=== PATIENT | female | born 1985 | race Caucasian/White ===

== ENCOUNTER 2018-05-30 07:08 | Emergency (ER) | payer OTHER ==
[2018-05-30 07:16] VITALS: RESP 19; BMI 33.8
[2018-05-30] MEDS ORDERED: Albuterol-Ipratrop 3 mg / 0.5 (3 ml) UD IH STA (07:29)
--- NOTE | 2018-05-30 07:37 | ED PDOC ---
Arrival/HPI - General Chief Complaint: Flu-like Symptoms Time Seen by Provider: 05/30/18 07:10 Historian: Patient - History of Present Illness Narrative History of Present Illness (Text): 05/30/18 07:29 33 y/o F with past medical history of asthma, presents to the Emergency department for evaluation of difficulty swallowing and flu-like symptoms for the past 10 days. Patient informs symptoms of subjective fever, chills, non-pr oductive cough and rhinorrhea, for which she was started on amoxicillin by her PMD with no improvement to symptoms. Patient additionally informs associated right ear discomfort. Patient worries the symptoms may exacerbate her asthma, prompting her to present to the ED for medical evaluation. Patient denies any other medical complaints. Patient denies any headache, dizziness, chest pain, shortness of breath, dyspnea on exertion, abdominal pain, nausea, vomiting, diarrhea, back pain, neck pain, chocking sensation while swallowing or any other complaints. Patient informs sick contact at home. Time/Duration: > week Symptom Onset: Gradual Symptom Course: Unchanged Activities at Onset: Light Context: Home Past Medical History - Provider Review Nursing Documentation Reviewed: Yes - Infectious Disease Hx of Infectious Diseases: None - Tetanus Immunization Tetanus Immunization: Unknown - Cardiac Hx Cardiac Disorders: No - Pulmonary Hx Respiratory Disorders: Yes Hx Asthma: Yes - Neurological Hx Neurological Disorder: No - HEENT Hx HEENT Disorder: No - Renal Hx Renal Disorder: No - Endocrine/Metabolic Hx Endocrine Disorders: No - Hematological/Oncological Hx Blood Disorders: No - Integumentary Hx Dermatological Disorder: No - Musculoskeletal/Rheumatological Hx Musculoskeletal Disorders: No - Gastrointestinal Hx Gastrointestinal Disorders: Yes Hx Gastroesophageal Reflux: Yes Other/Comment: abd hernia - Genitourinary/Gynecological Hx Genitourinary Disorders: Yes Other/Comment: PCOS - Psychiatric Hx Anxiety: Yes Hx Substance Use: No - Past Surgical History Past Surgical History: No Previous - Anesthesia Hx Anesthesia: No Hx Anesthesia Reactions: No Hx Malignant Hyperthermia: No - Suicidal Assessment Feels Threatened In Home Enviroment: No Family/Social History - Physician Review Nursing Documentation Reviewed: Yes Family/Social History: Unknown Family HX Smoking Status: Never Smoked Hx Alcohol Use: No Hx Substance Use: No Hx Substance Use Treatment: No Allergies/Home Meds Allergies/Adverse Reactions: Allergies house dust mite Allergy (Verified 03/26/18 23:08) SHORTNESS OF BREATH Home Medications: Home Meds Medication Instructions Recorded Confirmed Albuterol HFA [Ventolin HFA 90 2 puff IH PRN PRN 03/26/18 03/26/18 mcg/actuation (8 g)] Loratadine [Claritin] 1 tab PO DAILY 03/26/18 03/26/18 Review of Systems - Physician Review All systems were reviewed & negative as marked: Yes - Review of Systems Constitutional: absent: Fevers ENT: Rhinorrhea, Other (Right ear pain+ difficulty swallowing) Respiratory: Cough. absent: SOB Cardiovascular: absent: Chest Pain, NEW Gastrointestinal: absent: Abdominal Pain, Diarrhea, Nausea, Vomiting Genitourinary Female: absent: Dysuria, Urine Output Changes Musculoskeletal: absent: Back Pain, Neck Pain Skin: absent: Rash Neurological: absent: Headache, Dizziness Physical Exam Vital Signs Reviewed: Yes Vital Signs Temp Pulse Resp BP Pulse Ox 05/30/18 07:16 98.4 F 113 H 19 113/88 97 05/30/18 07:15 98.4 F 113 H 19 113/88 97 Temperature: Afebrile Blood Pressure: Normal Pulse: Tachycardic Respiratory Rate: Normal Appearance: Positive for: Well-Appearing, Non-Toxic, Comfortable Pain Distress: None Mental Status: Positive for: Alert and Oriented X 3 - Systems Exam Head: Present: Atraumatic, Normocephalic Pupils: Present: PERRL Extroacular Muscles: Present: EOMI Conjunctiva: Present: Normal. No: Injected Ears: Present: NORMAL TM (TM intact and opaque bilaterally. No signs of perfusion. ), Other (Mild hyperemia to right ear. Unable to visualize left ear secondary to impacted cerumen noted in left ear. ). No: TM Bulging, TM Perf Mouth: Present: Moist Mucous Membranes Pharnyx: Present: ERYTHEMA (erythema to soft palate noted. ). No: EXUDATE Nose (External): Present: Other (No sinus pressure) Neck: Present: Normal Range of Motion. No: Lymphadenopathy (no cervical lymphadenopathy) Respiratory/Chest: Present: Clear to Auscultation, Good Air Exchange. No: Respiratory Distress, Accessory Muscle Use Cardiovascular: Present: Regular Rate and Rhythm, Normal S1, S2. No: Murmurs Abdomen: No: Tenderness, Distention, Peritoneal Signs Back: Present: Normal Inspection Upper Extremity: Present: Normal Inspection. No: Cyanosis, Edema Lower Extremity: Present: Normal Inspection. No: Edema Neurological: Present: GCS=15, CN II-XII Intact, Speech Normal Skin: Present: Warm, Dry, Normal Color. No: Rashes Psychiatric: Present: Alert, Oriented x 3, Normal Insight, Normal Concentration Medical Decision Making ED Course and Treatment: 05/30/18 07:29 Impression: 33 year old female presents to the Emergency department complaining of flu-like symptoms. Differential Diagnosis included but are not limited to: Viral pharyngitis Bronchitis Pneumonia Rhinosinusitis Plan: -- Chest X-ray -- Duoneb -- Prednisone -- Rapid Flu A/B -- Urinalysis -- Reassess and disposition Prior Visits: Notes and results from previous visits were reviewed. Progress Notes: 05/30/18 08:50 Rapid flu negative with CXR revealing hazy infiltrate noted to R lobe. Patient reassessed and feels better. She requests additional medication refills and will follow up with her PCP. Scripts provided. She is stable for discharge. - Scribe Statement The provider has reviewed the documentation as recorded by the Scribe Armand Colindres. All medical record entries made by the Scribe were at my direction and personally dictated by me. I have reviewed the chart and agree that the record accurately reflects my personal performance of the history, physical exam, medical decision making, and the department course for this patient. I have also personally directed, reviewed, and agree with the discharge instructions and disposition. Disposition/Present on Arrival - Present on Arrival Any Indicators Present on Arrival: No History of DVT/PE: No History of Uncontrolled Diabetes: No Urinary Catheter: No History of Decub. Ulcer: No History Surgical Site Infection Following: None - Disposition Have Diagnosis and Disposition been Completed?: Yes Diagnosis: Viral pharyngitis, Bronchitis Disposition: HOME/ ROUTINE Disposition Time: 08:06 Patient Plan: Discharge Patient Problems: Current Active Problems Problem Status Onset Viral pharyngitis Acute Bronchitis Acute Condition: IMPROVED Discharge Instructions (ExitCare): Sore Throat, Adult (DC), Viral Upper Respiratory Infection, Adult (DC), Viral Pharyngitis (DC) Print Language: PORTUGUESE Additional Instructions: All medical record entries made by the Scribe were at my direction and personally dictated by me. I have reviewed the chart and agree that the record accurately reflects my personal performance of the history, physical exam, medical decision making, and the department course for this patient. I have also personally directed, reviewed, and agree with the discharge instructions and disposition. Prescriptions: Albuterol HFA [Ventolin HFA 90 mcg/actuation (8 g)] 2 puff IH [id number] #200 puff Azithromycin [Z-Parminder] 250 mg PO DAILY #6 tab Benzocaine 7.5% [Orajel 7.5%] 5.1 gm MM Q12H #1 tube Mag&Al/Simet/Diphen/Lido [First Magic Mouthwash] 30 ml MM Q6H #1 kit Methylprednisolone [Medrol Dose Pack (21 tabs)] 4 mg PO DAILY #21 mg Referrals: Myriam Harrison MD [Family Provider] - Follow up with primary Forms: [facility] [employer] [facility] (Belarusian)
[2018-05-30] MEDS ORDERED: guaiFENesin 200 mg/10 ml Syrup UD PO ONE (08:01)
[2018-05-30 08:15] LABS: URINE BILIRUBIN NEGATIVE (NEGATIVE); URINE BLOOD NEGATIVE (NEGATIVE); URINE GLUCOSE (UA) NEGATIVE (NEGATIVE); URINE LEUKOCYTE ESTERASE NEGATIVE Leu/uL (NEGATIVE); URINE PROTEIN 30 mg/dL (<30 mg/dL); URINE UROBILINOGEN 0.2 E.U./dL (<1 E.U./dL)
[2018-05-30 08:16] LABS: URINE APPEARANCE CLEAR (CLEAR); URINE COLOR YELLOW (YELLOW)
[2018-05-30] MEDS ORDERED: Albuterol 0.083% Inhal Sol (2.5 mg/3 mL) UD INH STA (08:16)
[2018-05-30 08:26] LABS: URINE RBC 0 - 2 /hpf (0-2); URINE WBC 0 - 2 /hpf (0-6)
[2018-05-30 08:27] LABS: URINE BACTERIA FEW (NEG)
[2018-05-30 08:56] VITALS: BP 125/53; PULSE 75; TEMP 98; O2SAT 100
--- NOTE | 2018-05-30 09:21 | RAD ---
Date of service: 05/30/2018 HISTORY: sob cough COMPARISON: 08/11/2017 FINDINGS: LUNGS: No active pulmonary disease. PLEURA: No significant pleural effusion identified, no pneumothorax apparent. CARDIOVASCULAR: No aortic atherosclerotic calcification present. Normal cardiac size. No pulmonary vascular congestion. OSSEOUS STRUCTURES: No significant abnormalities. VISUALIZED UPPER ABDOMEN: Normal. OTHER FINDINGS: None. IMPRESSION: No active disease.
== END 2018-05-30 08:55 | disposition home or self-care (01) ==
LOC: ED 07:08
DX: J40 Bronchitis, not specified as acute or chronic (principal); J02.8 Acute pharyngitis due to other specified organisms

== ENCOUNTER 2018-06-10 10:31 | Emergency (ER) | payer OTHER ==
[2018-06-10 10:31] VITALS: BMI 33.8
[2018-06-10 11:05] VITALS: RESP 18; TEMP 98
--- NOTE | 2018-06-10 11:08 | ED PDOC ---
Arrival/HPI - General Chief Complaint: Abdominal Pain Time Seen by Provider: 06/10/18 11:00 Historian: Patient - History of Present Illness Narrative History of Present Illness (Text): 06/10/18 11:17 A 33 year old female, whose past medical history includes asthma, GERD, anxiety, PCOS, presents to the emergency department complaining of abdominal pain pain since yesterday. Worsening achey LUQ and RUQ abdominal pain that began last night. Pt has been taking daily ibuprofen for a right ear ache that she has had for the last week. Associated ear fullness and pain when cleaning with Qtips; believes she may have gotten water stuck in the ear a few days ago. One episode of vomiting this morning. Last BM yesterday, small, hard, brown. Patient was seen in the ER 2 weeks ago for an URI and was prescribed steroids, which she fin ished as prescribed. Menstruation is irregular secondary to PCOS. Denies any change in appetite, fever, chills, cough, shortness of breath, chest pain, diarrhea, nausea, urinary symptoms, back pain, neck pain, headache, dizziness, vaginal bleeding, vaginal discharge, or any other complaints. Time/Duration: 24 hours (yesterday) Symptom Onset: Gradual Symptom Course: Unchanged Activities at Onset: Light Context: Home Past Medical History - Provider Review Nursing Documentation Reviewed: Yes - Infectious Disease Hx of Infectious Diseases: None - Tetanus Immunization Tetanus Immunization: Unknown - Cardiac Hx Cardiac Disorders: No - Pulmonary Hx Respiratory Disorders: Yes Hx Asthma: Yes - Neurological Hx Neurological Disorder: No - HEENT Hx HEENT Disorder: No - Renal Hx Renal Disorder: No - Endocrine/Metabolic Hx Endocrine Disorders: No - Hematological/Oncological Hx Blood Disorders: No - Integumentary Hx Dermatological Disorder: No - Musculoskeletal/Rheumatological Hx Musculoskeletal Disorders: No - Gastrointestinal Hx Gastrointestinal Disorders: Yes Hx Gastroesophageal Reflux: Yes Other/Comment: abd hernia - Genitourinary/Gynecological Hx Genitourinary Disorders: Yes Other/Comment: PCOS - Psychiatric Hx Anxiety: Yes Hx Substance Use: No - Past Surgical History Past Surgical History: No Previous - Anesthesia Hx Anesthesia: No Hx Anesthesia Reactions: No Hx Malignant Hyperthermia: No - Suicidal Assessment Feels Threatened In Home Enviroment: No Family/Social History - Physician Review Nursing Documentation Reviewed: Yes Family/Social History: No Known Family HX Smoking Status: Never Smoked Hx Alcohol Use: No Hx Substance Use: No Hx Substance Use Treatment: No Allergies/Home Meds Allergies/Adverse Reactions: Allergies house dust mite Allergy (Verified 03/26/18 23:08) SHORTNESS OF BREATH Home Medications: Home Meds Medication Instructions Recorded Confirmed Albuterol HFA [Ventolin HFA 90 2 puff IH PRN PRN 03/26/18 03/26/18 mcg/actuation (8 g)] Loratadine [Claritin] 1 tab PO DAILY 03/26/18 03/26/18 Review of Systems - Physician Review All systems were reviewed & negative as marked: Yes - Review of Systems Constitutional: Normal. absent: Fevers, Night Sweats Eyes: Normal. absent: Vision Changes ENT: Normal, Sinus Congestion (mild), Other (Right ear pain) Respiratory: Normal. absent: SOB, Cough Cardiovascular: Normal. absent: Chest Pain, Palpitations Gastrointestinal: Abdominal Pain (stomach pain), Nausea, Vomiting. absent: Stool Changes, Constipation, Diarrhea, Appetite Changes, Food Intolerance Genitourinary Female: Normal. absent: Dysuria, Frequency, Vaginal Bleeding, Vaginal Discharge Musculoskeletal: Normal. absent: Arthralgias, Back Pain, Neck Pain Skin: Normal. absent: Rash Neurological: Normal. absent: Headache, Dizziness Endocrine: Normal Hemo/Lymphatic: Normal Psychiatric: Normal Physical Exam Vital Signs Reviewed: Yes Vital Signs Temp Pulse Resp BP Pulse Ox 06/10/18 11:04 98.0 F 81 18 115/79 99 Temperature: Afebrile Blood Pressure: Normal Pulse: Regular Respiratory Rate: Normal Appearance: Positive for: Well-Appearing, Non-Toxic, Comfortable Pain Distress: None Mental Status: Positive for: Alert and Oriented X 3 - Systems Exam Head: Present: Atraumatic, Normocephalic Pupils: Present: PERRL Extroacular Muscles: Present: EOMI Conjunctiva: Present: Normal Ears: Present: NORMAL TM, Other (no bulging, left ear is normal). No: Normal Canal (right canal with erythema, mild purulence with crusting; pain on insertion of otoscope), TM Bulging Mouth: Present: Moist Mucous Membranes Pharnyx: Present: Normal. No: ERYTHEMA, EXUDATE Nose (External): Present: Atraumatic Nose (Internal): Present: Normal Inspection Neck: Present: Normal Range of Motion Respiratory/Chest: Present: Clear to Auscultation, Good Air Exchange. No: Respiratory Distress, Accessory Muscle Use Cardiovascular: Present: Regular Rate and Rhythm, Normal S1, S2, Peripheal Pul ses Present. No: Murmurs Abdomen: Present: Tenderness (+mid epigastric tenderness), Normal Bowel Sounds. No: Distention, Peritoneal Signs, Rebound, Guarding Back: Present: Normal Inspection. No: CVA Tenderness, Paraspinal Tenderness Upper Extremity: Present: Normal Inspection, Normal ROM, NORMAL PULSES, Neurovascularly Intact, Capillary Refill < 2s. No: Cyanosis, Edema Lower Extremity: Present: Normal Inspection, NORMAL PULSES, Normal ROM, Neurovascularly Intact, Capillary Refill < 2 s. No: Edema Neurological: Present: GCS=15, CN II-XII Intact, Speech Normal, Motor Func Grossly Intact, Normal Sensory Function, Gait Normal, Memory Normal Skin: Present: Warm, Dry, Normal Color. No: Rashes Lymphatic: No: Cervical Adenopathy Psychiatric: Present: Alert, Oriented x 3, Normal Insight, Normal Concentration, Normal Affect, Normal Mood Medical Decision Making ED Course and Treatment: 06/10/18 11:20 Impression: 33 year olr female presenting to the emergency department for abdominal pain and right ear pain. Plan: -- Pepcid -- Zofran -- Protonix -- IV fluids -- CBC, CMP, Lipase -- UA, Urine culture -- Xray of abdomen -- Reassess and disposition Prior Visits: Notes and results from previous visits were reviewed. Patient was last seen in the emergency department on 05/30/18 for congestion and was discharged when symptoms improved. Progress Notes: CBC: WBC 11.2, otherwise wnl CMP: wnl Lipase: wnl UA: moderate blood Obstructive Series: unremarkable 13:15 Patient reports no decrease of abdominal pain or nausea. Case discussed with Dr. Euceda, who recommends CT Abd/Pelvis in light of mild leukocytosis and blood in urine. CT Abd/Pelvis: Bilateral ovarian cysts No intra-abdominal pathology. 14:30 Patient reports onset of intermittent moderate LUQ and LLQ pain. Discussed case with Dr. Euceda, who recommends TV Pelvic ultrasound to r/o ovarian torsion secondary to large ovarian cysts, history of PCOS, and intermittent nature of pain with nausea. TV Pelvic US: Unremarkable No torsion 15:21 Patient reports complete resolution of pain in abdomen. Recommend outpatient followup for hematuria, abdominal pain. Followup given for GI and , however patient states she already has established doctors in these specialties that she prefers to followup with. Plan of care and results of diagnostic testing discussed with patient, and strict instructions given regarding prescriptions, importance of follow up with GI, PMD and gynecology, and signs to return to Emergency Department, to include hearing loss, fevers, chills, worsening abdominal pain, or any other new/worsening symptoms. Patient verbalizes understanding of discussion. Patient A&Ox3, ambulating with steady gait, stable for discharge home. Impression: Otitis Externa Abdominal Pain - Lab Interpretations Lab Results: 06/10/18 11:25 06/10/18 11:25 Lab Results 06/10/18 11:25: Urine Color Yellow, Urine Appearance Clear, Urine pH 6.0, Ur Specific [place] >= 1.030, Urine Protein Negative, Urine Glucose (UA) Negative, Urine Ketones Negative, Urine Blood Moderate H, Urine Nitrate Negative, Urine Bilirubin Negative, Urine Urobilinogen 0.2, Ur Leukocyte Esterase Negative, Urine RBC 15 - 20, Urine WBC 0 - 2, Ur Epithelial Cells 4 - 5, Urine Bacteria Mod 06/10/18 11:25: Sodium 140, Potassium 3.9, Chloride 107, Carbon Dioxide 24, Anion Gap 12, BUN 18, Creatinine 0.7, Est GFR ( Amer) > 60, Est GFR (Non- Af Amer) > 60, Random Glucose 116 H, Calcium 9.2, Total Bilirubin 0.3, AST 24, ALT 48, Alkaline Phosphatase 90, Total Protein 7.6, Albumin 4.2, Globulin 3.4, Albumin/Globulin Ratio 1.2, Lipase 68 06/10/18 11:25: WBC 11.2 H, RBC 4.49, Hgb 12.6, Hct 38.3, MCV 85.3, MCH 28.1, MCHC 32.9, RDW 13.7, Plt Count 187, MPV 10.2, Gran % 52.0, Lymph % (Auto) 40.9 H , [place] % (Auto) 6.5 H, Eos % (Auto) 0.5 L, Baso % (Auto) 0.1, Gran # 5.84, Lymph # (Auto) 4.6 H, [place] # (Auto) 0.7 H, Eos # (Auto) 0.1, Baso # (Auto) 0.01 I have reviewed the lab results: Yes - Scribe Statement The provider has reviewed the documentation as recorded by the Scribe Jolynn Mahoney All medical record entries made by the Scribe were at my direction and personally dictated by me. I have reviewed the chart and agree that the record accurately reflects my personal performance of the history, physical exam, medical decision making, and the department course for this patient. I have also personally directed, reviewed, and agree with the discharge instructions and disposition. Disposition/Present on Arrival - Present on Arrival Any Indicators Present on Arrival: No History of DVT/PE: No History of Uncontrolled Diabetes: No Urinary Catheter: No History of Decub. Ulcer: No History Surgical Site Infection Following: None - Disposition Have Diagnosis and Disposition been Completed?: Yes Diagnosis: Abdominal pain, Otitis externa, Gastritis Disposition: HOME/ ROUTINE Disposition Time: 16:00 Condition: IMPROVED Discharge Instructions (ExitCare): Acute Abdomen (Belly Pain), Gastritis (DC) Additional Instructions: Take ear drops 10 drops in right ear daily for 1 week Take pepcid every 12 hours as needed for pain Take omeprazole once daily Followup with gynecology within 2 days Followup with gastroenterology within 2 days Followup with primary within 2 days Return to ER for any new/worsening symptoms Prescriptions: Famotidine [Pepcid] 20 mg PO Q12H PRN #30 tab PRN Reason: reflux Ofloxacin Otic 0.3% [Floxin 0.3% Otic Soln] 10 drop AD DAILY #2 bottle Omeprazole 20 mg PO DAILY #30 tab Referrals: [facility] at [facility] [place] [Outside] - Follow up with primary Kelly Sims MD [Staff Provider] - Follow up with primary Rahat Galindo MD [Staff Provider] - Follow up with primary Patricia Noguera MD [Medical Doctor] - Follow up with primary Forms: [employer] [facility] (Uzbek), WORK NOTE
[2018-06-10] MEDS ORDERED: Sodium Chloride 0.9% 1,000 ML IV STA (11:17)
[2018-06-10 11:41] LABS: BASO # 0.01 K/mm3 (0.0-2.0); BASO % 0.1 % (0.0-3.0); EOS # 0.1 (0.0-0.7); EOS % 0.5 % (1.5-5.0); GRAN # 5.84 (1.4-6.5); HEMOGLOBIN 12.6 g/dL (12.0-16.0); LYMPH # 4.6 (1.2-3.4); LYMPH % 40.9 % (22.0-35.0); MEAN CELL VOLUME 85.3 fl (80.0-105.0); MEAN CORPUSCULAR HEMOGLOBIN 28.1 pg (25.0-35.0); MEAN CORPUSCULAR HGB CONC 32.9 g/dl (31.0-37.0); MEAN PLATELET VOLUME 10.2 fl (7.0-11.0); MONO # 0.7 (0.1-0.6); MONO % 6.5 % (1.0-6.0); RBC 4.49 10^6/uL (3.5-6.1); RED CELL DISTRIBUTION WIDTH 13.7 % (11.5-14.5); WHITE BLOOD COUNT 11.2 10^3/uL (4.5-11.0)
[2018-06-10 11:42] LABS: URINE APPEARANCE CLEAR (CLEAR); URINE BILIRUBIN NEGATIVE (NEGATIVE); URINE BLOOD MODERATE (NEGATIVE); URINE COLOR YELLOW (YELLOW); URINE GLUCOSE (UA) NEGATIVE (NEGATIVE); URINE LEUKOCYTE ESTERASE NEGATIVE Leu/uL (NEGATIVE); URINE PROTEIN NEGATIVE mg/dL (<30 mg/dL); URINE UROBILINOGEN 0.2 E.U./dL (<1 E.U./dL)
[2018-06-10 11:51] LABS: ALB/GLOB RATIO 1.2 (1.1-1.8); ALBUMIN 4.2 g/dL (3.0-4.8); ALT/SGPT 48 U/L (7-56); AST/SGOT 24 U/L (14-36); BLOOD UREA NITROGEN 18 mg/dL (7-21); CALCIUM 9.2 mg/dL (8.4-10.5); GFR NON-AFRICAN AMERICAN > 60; LIPASE 68 U/L (23-300); URINE BACTERIA MOD (NEG); URINE RBC 15 - 20 /hpf (0-2); URINE WBC 0 - 2 /hpf (0-6)
--- NOTE | 2018-06-10 12:37 | RAD ---
Date of service: 06/10/2018 HISTORY: abdominal pain COMPARISON: None available. FINDINGS: BOWEL: Normal. No obstruction. No free air. BONES: Normal. OTHER FINDINGS: None. IMPRESSION: No active disease.
[2018-06-10] MEDS ORDERED: Iohexol 350 MG/100 ML VIAL ONE (14:01)
[2018-06-10 14:21] VITALS: O2SAT 98
--- NOTE | 2018-06-10 14:26 | CT ---
Date of service: 06/10/2018 PROCEDURE: CT Abdomen and Pelvis with contrast HISTORY: abdominal pain COMPARISON: None. TECHNIQUE: Contrast dose: 100 cc of Omni 350 Radiation dose: Total exam DLP = 917.95 mGy-cm. This CT exam was performed using one or more of the following dose reduction techniques: Automated exposure control, adjustment of the mA and/or kV according to patient size, and/or use of iterative reconstruction technique. FINDINGS: LOWER THORAX: Unremarkable. LIVER: Unremarkable. No gross lesion or ductal dilatation. Fatty infiltration of the liver GALLBLADDER AND BILE DUCTS: Unremarkable. PANCREAS: Unremarkable. No gross lesion or ductal dilatation. SPLEEN: Unremarkable. ADRENALS: Unremarkable. No mass. KIDNEYS AND URETERS: Unremarkable. No hydronephrosis. No solid mass. VASCULATURE: Unremarkable. No aortic aneurysm. No aortic atherosclerotic calcification or mural plaque present. BOWEL: Unremarkable. No obstruction. No gross mural thickening. APPENDIX: Normal appendix. PERITONEUM: Unremarkable. No free fluid. No free air. LYMPH NODES: Unremarkable. No enlarged lymph nodes. BLADDER: Unremarkable. REPRODUCTIVE: Bilateral ovarian cysts measuring over 3 cm. BONES: No acute fracture. OTHER FINDINGS: None. IMPRESSION: No acute intra-abdominal findings
--- NOTE | 2018-06-10 16:11 | US ---
Date of service: 2018-06-10 15:20:23 HISTORY: r/o torsion, h/o bilateral ovarian cysts, PCOS COMPARISON: Pelvic ultrasound performed 04/25/18 TECHNIQUE: Real-time transabdominal pelvic ultrasound was performed. In addition a transvaginal pelvic ultrasound was necessary to better depict pelvic anatomy. FINDINGS: UTERUS: Measures 7.3 x 2.4 x 5.4 cm. ENDOMETRIUM: Measures 6 mm in diameter. CERVIX: No cervical abnormality identified. RIGHT OVARY: Measures 4.2 x 3.5 x 4.0 cm. Blood flow is demonstrated. Follicles. LEFT OVARY: Measures 3.6 x 3.0 x 3.6 cm. Blood flow is demonstrated. Follicles. FREE FLUID: No significant free fluid noted. OTHER FINDINGS: None. IMPRESSION: No acute findings.
[2018-06-10 16:46] VITALS: BP 136/70; PULSE 72
== END 2018-06-10 16:48 | disposition home or self-care (01) ==
LOC: ED 10:31
DX: K29.70 Gastritis, unspecified, without bleeding (principal); H60.91 Unspecified otitis externa, right ear; K21.9 Gastro-esophageal reflux disease without esophagitis; E28.2 Polycystic ovarian syndrome
CPT/HCPCS: 74019; 74177; 76830; 80053; 81001; 83690; 85025; 87086; 96361; 96374; 96375; 99285; C9113; J2405; J7030; Q9967